=== PATIENT | male | born 1980 | race Caucasian/White ===

== ENCOUNTER 2022-04-23 01:52 | Day surgery (SDC) | payer BC, SELFPAY ==
[2022-04-16 08:31] VITALS: BMI 27.2
--- NOTE | 2022-04-16 08:38 | PC.NURSE ---
Report to the Outpatient Waiting Room, entrance under the green pavilion located off [facility], at time 0600 on date 04/23/22. OR Time: 0730. Time changes happen often and if your time is changed the preop area will call you the afternoon before. - You and your visitor will be asked to self-screen and do not enter if you have any COVID symptoms. - Only one visitor and NO children visitors are allowed at this time. - The patient visitor is requested to leave or wait in car when not with patient due to restrictions. - A mask is required within the hospital. Patients may have clear liquids (water, carbonated beverages, clear teas, apple juice) until 3 hours prior to surgery with a maximum of 20 ounces. - No food from midnight until time of surgery Take the following medications with a SIP of water the morning of surgery: BUPROPION, ESCITALOPRAM, HYDROXYZINE IF NEEDED Medications to discontinue per physician: N/A Date to take last dose: N/A Please no make-up, nail telugu, hairspray, perfume, deodorant, or body powder the day of surgery. No jewelry (including any body piercings) or valuables the day of surgery, leave them at home. Please take a shower or bath the night before, or the morning of, surgery with an antibacterial soap (HIBICLENS). Wear comfortable, loose fitting clothing. - Jewelry must be removed prior to entering the operating room. Rings and piercings that are not removed may be cut off. - The hospital will not accept responsibility for valuables. - Please leave all valuables, including medications, at home the day of surgery. If you are going home after surgery, a licensed paratransit driver must drive you home. - NO public transportation without another adult. - We recommend that an adult stay with you for 24 hours following discharge. - We also recommend that you do not drive, make important decision, drink alcoholic beverages, or take any drugs that were not prescribed by your health care provider for at least 24 hours after your discharge time. Follow any additional instructions given to you from your surgeon. If you or anyone in your household have experienced Covid symptoms in the past week, please notify your surgeon or the nurse liaison at the phone number below for possible testing. Telephone instructions given to PT - EFREN MAGANA and asked if any additional questions and then verbalized understanding. Patient advised to call surgeon office or pre surgery nurse liaison [phone] if any additional questions.
[2022-04-23] VITALS (8 sets, daily range): BP systolic 116–133; BP diastolic 43–72; PULSE 42–61; RESP 16–18; TEMP 36.3–36.5; O2SAT 96–100
[2022-04-23] MEDS: KETOROLAC 15 MG/ML VIAL (*BKC) IV PUSH (07:06)
[2022-04-23] MEDS: ACETAMINOPHEN 500 MG TABLET 1000 MG PO (07:06)
--- NOTE | 2022-04-23 07:07 | WPDANESEPPF ---
Anes - Initial Pre Proc Eval Procedure: Operation Date: 04/23/22 07:30 Proposed Procedures p Open Umbilical Hernia Repair with Mesh - Anika Mcleod MD Date/Time: 04/23/22 07:07 Surgeon: Anika Mcleod MD Pre Op Diagnosis: umbilical hernia Patient Data Age: 41 Gender: M Height: 1.78 m Weight: 86.18 kg Allergies Allergy/AdvReac Type Severity Reaction Status Date / Time No Known Allergies Allergy Mild Verified 04/16/22 08:29 Home Medications Medication Instructions Recorded Confirmed Type bupropion HCl 100 mg tablet,12 hr 100 mg PO DAILY 11/30/21 04/16/22 History sustained-release (Wellbutrin SR) hydroxyzine HCl 25 mg tablet 25 mg PO BID PRN Anxiety 11/30/21 04/16/22 History escitalopram oxalate 20 mg tablet 20 mg PO DAILY 04/16/22 04/16/22 History Patient hx anesthesia problems: none Family hx anesthesia problems: other (nausea father) Results Review: All pre-operative results and documents have been reviewed as part of the pre-operative evaluation. [facility] Past Medical History Medical History Anxiety Depression DEX (obstructive sleep apnea) Surgical History Surgical History H/O partial thyroidectomy H/O: vasectomy Family History Family History Father Diabetes mellitus Hypertension Mother Patient's mother is in good health Other Lung cancer Social History Social History Smoking status: Current some day smoker Tobacco type: cigarettes Alcohol intake: never Substance use: never Substance use type: does not use Living arrangements: with family Additional occupation/education comments: [employer] Gender identity (if verbalized by the patient): Male Spiritual care concerns: No Anes - Eval Final PreProcedure Day of Procedure 04/23/22 07:07 Patient weight: overweight Heart: regular rate and rhythm Lungs: clear to auscultation Airway: Mallampati scale class II Neurological: alert and oriented Last oral intake: >/= 8 hours ASA classification: II Emergent: no Anesthetic plan: proceed Anesthesia type and monitoring: general LMA and standard monitoring Results Review: All pre-operative results and documents have been reviewed as part of the pre-operative evaluation. Informed Consent: The patient's anesthetic plan and its attendant risks and benefits were discussed with the patient/family/POA. Questions were solicited and answers provided to the satisfaction of the patient/family/POA.
[2022-04-23] MEDS: LACTATED RINGERS 1,000 ML 30 ML IV CONT ×2 (07:28→08:58)
--- NOTE | 2022-04-23 07:28 | PM.IMHP ---
H&P: HPI History of Present Illness Date/Time: 04/23/22 07:28 Chief Complaint: umbilical hernia Narrative: Mr Posadas is a 41 year old male that presents to the office at the request of Dr Quijano for an evaluation of an umbilical hernia. Patient reports that he first notice a bulge at his umbilical that is reducible about 2 years ago. Patient reports that it is getting larger with times. He reports he has also just gained weight with times and it is becoming more noticeable. However, it does not cause much pain except when it is touched. He would like to have this surgically repaired. Review of Systems Review of Systems: All systems reviewed & are unremarkable except as noted in HPI and below PMFSH Past Medical History Medical History Anxiety Depression DEX (obstructive sleep apnea) Surgical History Surgical History H/O partial thyroidectomy H/O: vasectomy Family History Family History Father Diabetes mellitus Hypertension Mother Patient's mother is in good health Other Lung cancer Social History Social History Smoking status: Current some day smoker Tobacco type: cigarettes Alcohol intake: never Substance use: never Substance use type: does not use Living arrangements: with family Additional occupation/education comments: [employer] Gender identity (if verbalized by the patient): Male Spiritual care concerns: No Meds Home Medications and Allergies Home Medications Medication Instructions Recorded Confirmed Type bupropion HCl 100 mg tablet,12 hr 100 mg PO DAILY 11/30/21 04/16/22 History sustained-release (Wellbutrin SR) hydroxyzine HCl 25 mg tablet 25 mg PO BID PRN Anxiety 11/30/21 04/16/22 History escitalopram oxalate 20 mg tablet 20 mg PO DAILY 04/16/22 04/16/22 History Allergies Allergy/AdvReac Type Severity Reaction Status Date / Time No Known Allergies Allergy Mild Verified 04/16/22 08:29 Exam Const: General: cooperative, healthy appearing, comfortable and no acute distress Resp: Auscultation: clear to auscultation bilaterally Cardio: Rate: regular rate Rhythm: regular rhythm GI: Inspection: normal to inspection, non-distended and visible herniation GI Palp: No abdominal tenderness, Yes Soft to palpation, No Tenderness to palpation present (GI), No Guarding due to palpation present (GI), No Rigid due to palpation and Yes Hernia present Assessment and Plan Assessment and plan (1) Umbilical hernia: Code(s): K42.9 - Umbilical hernia without obstruction or gangrene Status: Acute Assessment and Plan: open repair c mesh
--- NOTE | 2022-04-23 07:30 | WPDHPUPDATE1 ---
History and Physical Update Update Date/Time: 04/23/22 07:30 History and Physical has been reviewed, including an updated exam of the patient. There are NO changes in the patient's condition. Risks, benefits, and alternatives have been discussed and questions answered. Patient agrees to proceed with procedure.
[2022-04-23] MEDS: ceFAZolin 2 GM/D5W 50 ML 2 GM/50 ML BAG IVPB (07:32)
[2022-04-23] MEDS: BUPIVACAINE/EPINEPHRINE 0.25% 50 ML VIAL 30 ML INFILTRATE (07:57)
--- NOTE | 2022-04-23 08:23 | P.OP_ITS ---
Procedure Note - Detailed Date of Procedure 04/23/22 Pre-op Diagnosis umbilical hernia Post-op Diagnosis Same Procedure Performed repair of umbilical hernia with mesh Surgeon Anika Mcleod MD Anesthesia General Indications 41 y/o M c umbilical hernia Findings umbilical hernia c preperitoneal fat and omentum Description of Procedure The patient was taken to the operating room placed in the supine position. Aft er adequate induction of general anesthesia, the patient was prepped and draped in the normal sterile fashion. A time-out was then done to verify the patient's identity, as well as the procedure being performed. I began by localizing the area around the umbilicus. I then made a curvilinear incision in the infraumbilical fold. This was taken down to level fascia. I then was able to bluntly dissect around the umbilicus. I then carefully dissected the umbilicus off the underlying fascia. I then noted a small defect with incarcerated omentum and preperitoneal fat. I was able to mobilize the incarcerated tissue and reduce it back into the abdominal cavity. This left an approximately 2 cm defect. I then placed a 4.6 cm round piece of ventralex mesh in the underlay position. This was noted to have good, wide local coverage of the defect. I then closed this defect primarily with interrupted 0 Ethibond suture over the underlay mesh repair. I then reapproximated the umbilicus to the fascia with a 3 0 Vicryl U-stitch. The subcutaneous tissue was then closed with 3 0 Vicryl suture. The skin was closed with 4 0 Monocryl subcuticular suture. Dermabond was then placed on the wound. The patient tolerated the procedure well was extubated in the operating room postop. He will be transferred to the recovery room in stable condition. Implants 4.6 cm ventralex mesh in underlay position Estimated Blood Loss 5 Drains No Packing No Pathology None sent Complications No immediate complications Condition Stable Disposition PACU
--- NOTE | 2022-04-23 09:01 | SUR.PHASEI ---
0900: Simple mask removed.
--- NOTE | 2022-04-23 10:15 | SUR.PHASEII ---
1015- Spoke with Dr. Mcleod via telephone and informed MD patient and requesting abdominal binder be sent home with them. Per Dr. Mcleod OK to use abdominal binder after discharge home.
== END 2022-04-23 10:20 | disposition home or self-care (01) ==
PROVIDERS: PCP Family Medicine; Visit Provider Surgery
PROC: (CPT 49587; principal; 2022-04-23 07:30)
DX: K42.0 Umbilical hernia with obstruction, without gangrene (principal); G47.33 Obstructive sleep apnea (adult) (pediatric); F41.9 Anxiety disorder, unspecified; F32.A Depression, unspecified; F17.210 Nicotine dependence, cigarettes, uncomplicated
CPT/HCPCS: 49587; A9270; C1781; J0690; J1100; J1885; J2250; J2405; J2704; J3010; J7120